=== PATIENT | female | born 1960 | race Caucasian/White ===

== ENCOUNTER → 2023-07-30 06:24 | Day surgery (SDC) | payer OTHER, SELFPAY ==
[2023-07-30 07:09] LABS: Glucose - Point of Care 146 mg/dl (70-99)
== END ==
LOC: GI 06:24
PROVIDERS: ATTENDING PHYSICIAN Internal Medicine
DX: Z12.11 Encounter for screening for malignant neoplasm of colon (principal); K63.5 Polyp of colon; D12.3 Benign neoplasm of transverse colon; N81.6 Rectocele; K64.8 Other hemorrhoids; K64.4 Residual hemorrhoidal skin tags; Z86.010 Personal history of colon polyps; Z80.0 Family history of malignant neoplasm of digestive organs
CPT/HCPCS: 45385; 88305; 82962

== ENCOUNTER 2024-01-05 19:07 | Outpatient (RCR) | payer OTHER, SELFPAY | END 2024-01-05 23:59 | disposition home or self-care (01) | LOC: ROT 19:07 | PROVIDERS: ATTENDING PHYSICIAN Orthopaedic Surgery | DX: M65.331 Trigger finger, right middle finger (principal); M79.642 Pain in left hand; M79.641 Pain in right hand | CPT/HCPCS: 97010; 97018; 97110; 97140; 97166; 97535; 97760 ==

== ENCOUNTER 2024-01-13 18:37 | Outpatient (RCR) | payer OTHER, SELFPAY | END 2024-01-22 13:07 | disposition home or self-care (01) | LOC: ROT 18:37 | PROVIDERS: ATTENDING PHYSICIAN Orthopaedic Surgery | DX: M65.331 Trigger finger, right middle finger (principal); Z73.6 Limitation of activities due to disability | CPT/HCPCS: 97010; 97022; 97110; 97140 ==